=== PATIENT | female | born 1990 | race Two or more races ===

== ENCOUNTER 2018-03-08 01:04 | Emergency (ER) | payer OTHER ==
[~2018-03-08] VITALS: Ht 167.6 cm; Wt 49.9 kg
[2018-03-08] MEDS ORDERED: MEDROL4 MG PO (06:26)
[2018-03-08] MEDS ORDERED: DUI500 PO (06:26)
[2018-03-08] MEDS ORDERED: KETO10TA2 PO (06:26)
== END 2018-03-08 06:36 | disposition home or self-care (01) ==
LOC: ER 01:04
DX: R60.0 Localized edema (principal); S80.862A Insect bite (nonvenomous), left lower leg, initial encounter; S80.861A Insect bite (nonvenomous), right lower leg, initial encounter; W57.XXXA Bitten or stung by nonvenomous insect and other nonvenomous arthropods, initial encounter; Y93.89 Activity, other specified; Y92.828 Other wilderness area as the place of occurrence of the external cause; Y99.8 Other external cause status